=== PATIENT | female | born 1940 | race Caucasian/White ===

== ENCOUNTER → 2016-09-29 | Outpatient (CLI) | payer MEDICARE, OTHER | END | disposition home or self-care (01) | LOC: CFH 10:41 | PROVIDERS: ATTEND Internal Medicine Cardiovascular Disease | DX: I77.819 Aortic ectasia, unspecified site (principal); I08.2 Rheumatic disorders of both aortic and tricuspid valves; Z95.2 Presence of prosthetic heart valve | CPT/HCPCS: 93306 ==

== ENCOUNTER 2017-06-07 09:56 | Day surgery (SDC) | payer MEDICARE, OTHER ==
[~2017-06-07] VITALS: Ht 157.5 cm; Wt 54.0 kg
[2017-06-07] MEDS ORDERED: LEVO75CA2 PO (10:51)
[2017-06-07] MEDS ORDERED: ASPI-650 PO (10:51)
[2017-06-07] MEDS ORDERED: NALOXONE 0.4 MG/ML, 1ML IVPush PRN ×2 (11:00)
[2017-06-07] MEDS ORDERED: SODIUM CHLORIDE 0.9% 1,000 ML IV SCH (11:00)
[2017-06-07] MEDS ORDERED: PLEASE ENTER ALLERGIES MC SCH (11:30)
[2017-06-07] MEDS ORDERED: PROPOFOL 10 MG/ML, 20ML ONE (12:13)
== END 2017-06-07 14:28 ==
LOC: CACL 09:56
PROVIDERS: ATTEND Internal Medicine Cardiovascular Disease
DX: I35.1 Nonrheumatic aortic (valve) insufficiency (principal); Z95.2 Presence of prosthetic heart valve; I34.0 Nonrheumatic mitral (valve) insufficiency; I77.810 Thoracic aortic ectasia; Z88.2 Allergy status to sulfonamides; Z88.5 Allergy status to narcotic agent; Z79.82 Long term (current) use of aspirin; Z79.899 Other long term (current) drug therapy
CPT/HCPCS: 93312; 93321; 93325; J2704

== ENCOUNTER 2018-01-31 08:31 | Outpatient (CLI) | payer MEDICARE, OTHER ==
[~2018-01-31 08:31] MED LIST: ASPI-650 PO; LEVO75CA2 PO
== END 2018-02-07 09:30 | disposition home or self-care (01) ==
LOC: CVU 08:31
PROVIDERS: ATTEND Internal Medicine Cardiovascular Disease
DX: I07.1 Rheumatic tricuspid insufficiency (principal); I77.810 Thoracic aortic ectasia; I35.0 Nonrheumatic aortic (valve) stenosis
CPT/HCPCS: 0399T; 93306

== ENCOUNTER → 2019-01-23 | Outpatient (CLI) | payer MEDICARE, OTHER | END | disposition home or self-care (01) | LOC: CFH 09:23 | PROVIDERS: ATTEND Internal Medicine Cardiovascular Disease | DX: I08.2 Rheumatic disorders of both aortic and tricuspid valves (principal); R06.02 Shortness of breath | CPT/HCPCS: 93306 ==

== ENCOUNTER → 2019-06-27 | Outpatient (CLI) | payer MEDICARE, OTHER | END | disposition home or self-care (01) | LOC: CVU 12:24 | PROVIDERS: ATTEND Internal Medicine Cardiovascular Disease | DX: I36.1 Nonrheumatic tricuspid (valve) insufficiency (principal) | CPT/HCPCS: 93306 ==